=== PATIENT | female | born 1995 | race Caucasian/White ===

== ENCOUNTER 2020-01-02 09:10 | Emergency (ER) | payer MEDICAID ==
[~2020-01-02] VITALS: Ht 149.9 cm; Wt 50.3 kg
[2020-01-02 09:14] VITALS: BP 102/67; Ht 149.9 cm; Wt 50.3 kg
== END 2020-01-02 10:15 | disposition home or self-care (01) ==
LOC: ED 09:10
DX: S01.80XA Unspecified open wound of other part of head, initial encounter (principal); W20.8XXA Other cause of strike by thrown, projected or falling object, initial encounter; Y93.89 Activity, other specified; Y92.89 Other specified places as the place of occurrence of the external cause; Y99.8 Other external cause status
CPT/HCPCS: 90715